=== PATIENT | female | born 1950 | race Hispanic/Latino ===

== ENCOUNTER 2018-01-16 02:25 | Emergency (ER) | payer MEDICARE, OTHER ==
[2018-01-16] MEDS ORDERED: Adacel (T-DAP) 0.5 ML VIAL ONE (04:37)
--- NOTE | 2018-01-16 08:51 | CT ---
PRELIMINARY REPORT/[facility]/EMERGENTY AFTER-HOURS PROCEDURE CT Cervical Spine Without Intravenous Contrast CLINICAL HISTORY: 67 years old, female; Injury or trauma; Fall; Initial encounter; Abrasion; Patient HX: Er 2; 67f who attempted to use the bathroom this evening when she missed the commode and hit her head on the ground . She did not lose consciousness at any point. She denies syncope or presyncope. PT with mild right sided headache since fall. TECHNIQUE: Axial computed tomography images of the cervical spine without intravenous contrast. Coronal and sagi ttal reformatted images were created and reviewed. COMPARISON: No relevant prior studies available. FINDINGS: Vertebrae: No acute fracture. Normal alignment. Discs/Spinal canal/Neural foramina: No spinal stenosis. No neural foraminal narrowing. Soft tissues: Unremarkable. Lung apices: Normal. IMPRESSION: No acute findings. Thank you for allowing us to participate in the care of your patient. Dictated and Authenticated by: Lopez Tim MD 01/16/2018 4:43 AM Central Time ([place] & [place]) FINAL REPORT: EMERGENT AFTER HOURS CT OF THE CERVICAL SPINE WITHOUT CONTRAST: FINDINGS/IMPRESSION: I agree with the findings and impression given in the preliminary report by AD physician. No eviden ce of acute osseous abnormality of the cervical spine. POS: [facility]
--- NOTE | 2018-01-16 08:53 | CT ---
PRELIMINARY REPORT/[facility]/EMERGENTY AFTER-HOURS PROCEDURE CT Head Without Intravenous Contrast CLINICAL HISTORY: 67 years old, female; Injury or trauma; Fall; Initial encounter; Blunt trauma (contusions or hematoma s); Consciousness not specified; Patient HX: Er 2; 67f who attempted to use the bathroom this evening when she missed the commode and hit her head on the ground. She did not lose consciousness at any po int. She denies syncope or presyncope. PT with mild right sided headache since fall. TECHNIQUE: Axial computed tomography images of the head/brain without intravenous contrast. COMPARISON: No relevant prior studies available. FINDINGS: Brain: No radiographic evidence of acute territorial infarct or intracranial bleed. Mild patchy hypod ensity of the cerebral white matter, nonspecific but likely secondary to small vessel ischemic diseas e. Ventricles: Normal. No ventriculomegaly. Bones/joints: Normal. No acute fracture. Sinuses: Normal as visualized. No acute sinusitis. Mastoid air cells: Normal as visualized. No mastoid effusion. Soft tissues: Normal. IMPRESSION: 1. No radiographic evidence of acute territorial infarct or intracranial bleed. 2. Mild amount of small vessel ischemic disease. Thank you for allowing us to participate in the care of your patient. Dictated and Authenticated by: Lopez Tim MD 01/16/2018 4:36 AM Central Time ([place] & [place]) FINAL REPORT EMERGENCY AFTER HOURS CT BRAIN WITHOUT CONTRAST: Date: 01/16/18 FINDINGS/IMPRESSION: I agree with the findings and impression given in the preliminary report per [facility] physician. Small ve ssel ischemic disease without acute intracranial abnormality. POS: [facility]
== END 2018-01-16 04:00 | disposition short-term general hospital (02) ==
LOC: ERS 02:25
DX: S01.01XA Laceration without foreign body of scalp, initial encounter (principal); Z23 Encounter for immunization; W22.8XXA Striking against or struck by other objects, initial encounter
CPT/HCPCS: 12002; 70450; 72125; 90471; 90715